=== PATIENT | male | born 1960 | race Caucasian/White ===

== ENCOUNTER 2019-07-09 10:45 | Inpatient (IN) | payer OTHER ==
[~2019-07-09] VITALS: Ht 180.3 cm; Wt 99.8 kg
[~2019-07-09 10:45] MED LIST: CIPRO750 MG PO; CLONAZEPAM1 MG PO; DOCUSATE SODIU100 MG PO; METHYLPRED4 MG/DOSE- PO; NEURONTIN PO; PERCOCET 5/321 UDTAB PO
[2019-07-09] MEDS ORDERED: NORVASC2.5 M1 PO (15:44)
[2019-07-09] MEDS ORDERED: ZOCOR20 MG PO (15:45)
[2019-07-09] MEDS ORDERED: METOPROLOL ER-1 EAC1 PO (15:46)
[2019-07-15] MEDS ORDERED: COLACE100 MG PO (07:43)
[2019-07-15] MEDS ORDERED: CLONAZEPAM0.5 MG PO (07:43)
[2019-07-15] MEDS ORDERED: PERCOCET 5-3251 EACH PO (07:43)
== END 2019-07-15 10:00 | disposition home or self-care (01) | DRG 454 ==
LOC: O/R 10:45 → SURG 07-14 09:58 → SURH 07-14 10:45 → SURG 07-14 15:00
PROVIDERS: ADMIT Orthopaedic Surgery Orthopaedic Surgery of the Spine
PROC: 0RG2071 Fusion of 2 or more Cervical Vertebral Joints with Autologous Tissue Substitute, Posterior Approach, Posterior Column, Open Approach (ICD-10-PCS; 2019-07-14)
PROC: 0RT30ZZ Resection of Cervical Vertebral Disc, Open Approach (ICD-10-PCS; 2019-07-14)
PROC: 07DS3ZZ Extraction of Vertebral Bone Marrow, Percutaneous Approach (ICD-10-PCS; 2019-07-14)
PROC: 3E0F7GC Introduction of Other Therapeutic Substance into Respiratory Tract, Via Natural or Artificial Opening (ICD-10-PCS; 2019-07-14)
PROC: 0RG20A0 Fusion of 2 or more Cervical Vertebral Joints with Interbody Fusion Device, Anterior Approach, Anterior Column, Open Approach (ICD-10-PCS; principal; 2019-07-14 12:15)
DX: M47.12 Other spondylosis with myelopathy, cervical region (principal); M50.022 Cervical disc disorder at C5-C6 level with myelopathy; M50.023 Cervical disc disorder at C6-C7 level with myelopathy; I10 Essential (primary) hypertension